=== PATIENT | female | born 1955 | race Caucasian/White ===

== ENCOUNTER → 2016-04-30 | Outpatient (CLI) | payer OTHER ==
--- NOTE | ~2016-04-30 | PFR/MVV ---
[facility] [place] [address] PULMONARY FUNCTION MVV/REPORT Name: MICHAEL DAVIDSON Room #: REG [facility].#: [id number] Admission: 04/30/16 Attend Phys: Mateusz Matthews DO Discharge: Date of : 51 Report #: [id number] THIS REPORT FOR: //name// COPIES FOR: AGE: 60 SEX/RACE: F/C >> SPIROMETRY: (BTPS) Height: 62 in cm Weight: 170 lbs kg Exam Date: 04/30/16 PRE-RX POST-RX PRED BEST %PRED BEST %PRED %CHG FVC LITERS . 2.73 . 3.38 . 124 . 3.50 . 128 . 4 FEV1 LITERS . 2.21 . 2.64 . 119 . 2.71 . 123 . 3 FEV1/FVC % . 83 . 78 . 94 . 78 . 93 . -1 OAD13-17% L/Sec . 2.39 . 2.60 . 109 . 2.57 . 108 . -1 PEF L/SEC . 5.43 . 6.48 . 119 . 4.78 . 88 . -26 FEF50/FIF50 UNITLESS . <1.00 . 1.98 . . 2.03 . . 2 MVV L/Min . 90 . 73 . 81 f 1/Min . . 175 . >> LUNG VOLUMES: (BTPS) PRE-RX POST-RX PRED AVG %PRED AVG %PRED %CHG VC Liters . 2.73 . 3.94 . 144 . . . TLC Liters . 4.48 . 5.65 . 126 . . . RV Liters . 1.70 . 1.71 . 101 . . . RV/TLC % . 38 . 30 . 79 . . . FRC [address] Liters . 2.32 . 3.02 . 130 . . . FRC N2 Liters . 2.32 . . . . . ERV Liters . . 1.31 . . . . IC Liters . . 2.60 . . . . >> DIFFUSION: DLCO ml/Min/mmHg . 20.8 . 16.7 . 80 . . . DL Ashlyn ml/Min/mmHg . 20.8 . 16.7 . 80 . . . DLCO/VA ml/Min/mmHg . 3.70 . 4.49 . 122 . . . VA Liters . . 3.71 . . . . [facility] [address] [place] [address] PULMONARY FUNCTION MVV/REPORT Name: MICHAEL DAVIDSON Room #: REG [facility]#: [id number] Admission: 04/30/16 Attend Phys: Mateusz Matthews DO Discharge: Date of : 51 Report #: [id number] COMMENTS: COMMENTS: >> RESISTANCE: PRE-RX PRED AVG %PRED Raw Total cmH20/L/Sec . . 5.50 . Raw Insp cmH20/L/Sec . . 4.95 . Raw Exp cmH20/L/Sec . . 10.78 . Raw cmH20/L/Sec . 1.68 . 2.22 . 132 Gaw L/Sec/cmH20 . 0.557 . 0.450 . 81 sRaw cmH20 Sec . 3.90 . 5.60 . 143 sGaw l/cmH20 Sec . 0.256 . 0.179 . 70 Vtq Liters . . 2.52 . # = OUTSIDE 95% CONFIDENCE INTERVAL CALIBRATION: PRED: 3.00 ACTUAL: EXP 3.01 INSP 3.02 [facility] N-1804-4 >> INTERPRETATION/IMPRESSION: CC: Mateusz Matthews MD Spirometric examination shows normal flows. There is no significant bronchodilator response. Lung volumes are increased suggestive of airtrapping. Diffusion capacity is normal, corrected for alveolar volume. Flow volume loop is normal. IMPRESSION: Normal pulmonary function study. <ELECTRONICALLY SIGNED> By: Balwinder Lilly MD 05/22/16 1650 Balwinder Lilly MD /nt
== END ==
LOC: CAT 10:37
DX: J32.9 Chronic sinusitis, unspecified (principal)

== ENCOUNTER → 2018-07-22 | Outpatient (CLI) | payer OTHER | LOC: CAT 10:54 | DX: Z13.6 Encounter for screening for cardiovascular disorders (principal); E78.00 Pure hypercholesterolemia, unspecified; I25.10 Atherosclerotic heart disease of native coronary artery without angina pectoris ==

== ENCOUNTER → 2019-06-30 | Outpatient (CLI) | payer OTHER | LOC: ULTRA 08:23 | DX: N28.1 Cyst of kidney, acquired (principal); K82.8 Other specified diseases of gallbladder ==

== ENCOUNTER 2019-07-08 12:33 | Observation (INO) | payer OTHER ==
[~2019-07-08] VITALS: Ht 152.4 cm; Wt 81.6 kg
--- NOTE | ~2019-07-08 | O ---
[facility] [place] [address] OPERATIVE REPORT Name: MICHAEL DAVIDSON Room #: 447-P [facility]..#: [id number] Admission: 07/08/19 Attend Phys: Yang Bernabe MD Discharge: Date of : 51 Report #: [id number] THIS REPORT FOR: cc: Mateusz Matthews,Yang Ontiveros MD ~ CC: Yang Matthews MD DATE OF SERVICE: 07/08/2019 PREOPERATIVE DIAGNOSES: Cholecystitis with sludge. POSTOPERATIVE DIAGNOSES: Cholecystitis and cholesterolosis. PROCEDURE PERFORMED: Laparoscopic cholecystectomy with cholangiogram. SURGEON: Yang Bernabe MD ANESTHESIA: General anesthesia. COMPLICATIONS: None. ESTIMATED BLOOD LOSS: 5 mL. PROCEDURE NOTE: With the patient under general anesthesia, IV antibiotic was administered. Abdomen prepped and draped in sterile fashion. Timeout was performed. A 0.25% Marcaine was used to anesthetize the skin. A small curved incision about 2 cm was made above the umbilicus. After incising through the skin and subcutaneous tissue, the midline fascia was identified. Midline fascia was opened under visualization, 0 Vicryl suture placed on the fascia for retraction. With the abdominal wall lifted anteriorly, Veress needle was then placed through the peritoneum. Abdominal cavity was insufflated with CO2. After creating pneumoperitoneum pressure of 15, 11 mm trocar was placed. Abdominal content appeared normal. Two 5 mm trocars were placed in the right upper quadrant and a 5 mm trocar right epigastrium. Gallbladder was lifted over the liver. Gallbladder was somewhat floppy. There are small adhesions to the proximal part of the gallbladder. These adhesions were taken down. The peritoneum was dissected free over the triangle of Calot. Cystic duct and artery were identified. The cystic artery was fairly close to the duct that went ahead and isolated the cystic artery, clipping x 2 proximally and 1 distally and then divided the cystic artery. Cystic duct was then isolated. The cystic duct was normal size. Clip was placed in junction of cystic duct to the gallbladder. When I looked medially, I can see part of the common duct. Opening was made in the cystic duct. Cholangiogram catheter was placed. [address] [address] OPERATIVE REPORT Name: MICHAEL DAVIDSON Room #: 447-P [facility] M.R.#: [id number] Admission: 07/08/19 Attend Phys: Yang Bernabe MD Discharge: Date of : 51 Report #: [id number] Fluoroscopic cholangiogram was obtained. The cholangiogram catheter was identified in the cystic duct, no harm to common duct. The common duct filled out well. The left hepatic branch did not fill out very well. The dye did flow readily into the duodenum. No stones identified. The cholangiogram catheter was then removed. The proximal cystic duct was then clipped x 2. The proximal part of the cystic duct was then clipped x 2. Cystic duct was divided. The rest of the gallbladder was divided from the liver bed without difficulty. The gallbladder was then removed through the 11 mm trocar. Gallbladder was opened off the field and it had several large size cholesterol gathering and one was floating in the liquid, consistent with cholesterolosis. The liver bed was checked. Hemostasis was obtained and confirmed. Trocars irrigation was aspirated out. Trocars removed. CO2 was evacuated. The fascia defect at the 11 mm trocar site above the umbilicus was closed with zghpft-yd-drcva 0 Vicryl x 2. Skin was irrigated. Skin was closed with 5-0 PDS. Steri-Strip, Band-Aids applied. The patient tolerated the procedure well and taken to recovery room. By: 2149 [id number] Yang Bernabe MD /nt
[2019-07-08 12:36] VITALS: BP 170/139
[2019-07-08] MEDS ORDERED: COZAAR 25 MG TA25 M1 PO (12:41)
[2019-07-08] MEDS ORDERED: SERTRALINE HCL100 MG PO (12:41)
[2019-07-08] MEDS ORDERED: HYDROCHLOROTHIA25 M2 PO (12:41)
[2019-07-08] MEDS ORDERED: OMEPRAZOLE40 MG PO (12:42)
[2019-07-08] MEDS ORDERED: CRESTOR5 MG PO (12:43)
[2019-07-08 13:38] LABS: ABSOLUTE NEUTROPHILS 3.3 thou/uL (1.4-8.2); BASOPHILS 0.6 % (0.0-2.0); EOSINOPHILS 0.6 % (0.0-3.0); HEMOGLOBIN 12.9 gm/dL (12.0-15.0); LYMPHOCYTES 29.9 % (24.0-44.0); MCH 29.4 pg (26.0-34.0); MCV 89.2 fL (80.0-100.0); MONOCYTES 7.3 % (1.0-8.0); PLATELET COUNT 292 thou/uL (150-400); POLYS 61.6 % (36.0-66.0); RBC 4.37 mil/uL (4.20-5.00); RDW 13.9 % (10.5-14.5); WBC 5.3 thou/uL (4.0-11.0)
[2019-07-08 13:51] LABS: CALCIUM 9.9 mg/dL (8.5-10.1); CREATININE 0.9 mg/dL (0.6-1.0); POTASSIUM 3.6 mmol/L (3.5-5.1)
[2019-07-08 13:58] LABS: ALBUMIN 3.9 g/dL (3.4-5.0); TOTAL BILIRUBIN 0.2 mg/dL (<0.1-1.0)
[2019-07-08 14:23] VITALS: BP 163/76
[2019-07-08 14:43] VITALS: BP 167/71
--- NOTE | 2019-07-08 16:24 | EKG ---
[facility] [place] [address] ELECTROCARDIOGRAM REPORT Name: MICHAEL DAVIDSON Room #: 150-1 ADM [facility] M.R.#: [id number] Admission: 07/08/19 Attend Phys: Yang Bernabe MD Discharge: Date of : 51 Report #: [id number] THIS REPORT FOR: cc: Mateusz Matthews,Mateusz Kendrick,Morris Ford MD ~ THIS REPORT FOR: //name// [facility] ED Test Date: 2019-07-08 Test Time: 13:30:23 Pat Name: MICHAEL DAVIDSON Department: Room: [facility] Gender: F Rack Loader: roger : 1955 Requested By: Herve Khanna Order Number: [id number] MD: Morris Ryan Measurements Intervals [place] Rate: 90 P: 50 OH: 133 QRS: -4 QRSD: 88 T: 40 QT: 366 QTc: 448 Interpretive Statements Sinus rhythm Probable left atrial enlargement RSR' in V1 or V2, probably normal variant No previous ECG available for comparison Electronically Signed On 07-08-2019 16:22:49 CDT by Morris Ryan [email or web address] <ELECTRONICALLY SIGNED> By: Morris Ryan MD 07/08/19 1622 1330 1330 Morris Ryan MD /EPI
--- NOTE | 2019-07-08 17:46 | H ---
[facility] [place] [address] HISTORY AND PHYSICAL Name: MICHAEL DAVIDSON Room #: 150-1 [facility]..#: [id number] Admission: 07/08/19 Attend Phys: Yang Bernabe MD Discharge: Date of : 51 Report #: [id number] THIS REPORT FOR: cc: Mateusz Matthews,Yang Ontiveros MD ~ CC: Yang Matthews MD DATE OF SERVICE: 07/08/2019 PREOPERATIVE DIAGNOSES: Cholecystitis with gallbladder sludge and abdominal pain. HISTORY OF PRESENT ILLNESS: The patient is a 63-year-old who went to see Dr. Matthews on 06/30/2019. She has been experiencing abdominal pain for about a year. She does have a lifelong history of abdominal issues or digestive issues. The patient, on 06/30/2019, complained of right upper quadrant pain. She had an ultrasound ordered on 06/30/2019 and it showed gallbladder sludge and ovoid dependent layering structure that is about a centimeter that felt to be either soft, non-shadowing stone or tumefactive sludge. No wall thickening. Last night, she had attack of pain and almost went to the Emergency Room. She is feeling progressively worse. The pain is in right upper quadrant, going to her back and shoulder area. She has a lot of bloating and her abdomen feels like a rock at times. Does have history of nausea and vomiting. She has hot flashes. No fever. Has history of diarrhea on and off. The patient on 06/30/2019 did have normal liver function tests and her white count is normal at 4900, hemoglobin of 12.5, platelet of 281. Liver function tests showed bilirubin of less than 0.25. Normal alkaline phosphatase, SGOT and SGPT. Creatinine is 0.8, BUN 1.5, potassium 4.2, sodium 142. The patient was worked in today because of the severe nature of her pain last night. The patient is recommended to proceed with gallbladder surgery. She did have some oatmeal apple raisin at about 9:45 this morning, since then, she has been n.p.o. PAST MEDICAL HISTORY: High blood pressure, anxiety. The patient denies any heart disease, denies diabetes, denies lung disease, denies liver disease, denies kidney disease, denies bleeding disorder, denies history of blood clot. History of urinary tract infection. PAST SURGICAL HISTORY: Tubal ligation, laparoscopic surgery for endometriosis, tonsillectomy, knee surgery, breast augmentation. She says takes longer to wake up from anesthesia. FAMILY HISTORY: Sister and her daughter have gallbladder trouble and had gallbladder surgery. The patient's family history also includes arthritis and [address] [address] HISTORY AND PHYSICAL Name: MICHAEL DAVIDSON Room #: 150-1 [facility] MJanett#: [id number] Admission: 07/08/19 Attend Phys: Yang Bernabe MD Discharge: Date of : 51 Report #: [id number]. REVIEW OF SYSTEMS: No history of jaundice. No headache, chest pain, shortness of breath. SOCIAL HISTORY: She is a caregiver for elderly individual. She does not smoke or drink. She has taken some dezb-dnu-hdrhhep histamine which has helped with her pain. PHYSICAL EXAMINATION: GENERAL: The patient appears to be appropriate age. Well-developed, well-nourished. HEENT: Pupils react to light. Sclerae are nonicteric. NECK: Soft and supple. Oropharynx is clear. LUNGS: Clear to auscultation. HEART: Regular rate and rhythm. No murmur or gallop. ABDOMEN: Soft, nondistended and xwmr-xa-btygykhh tenderness in right upper quadrant. No mass detected. A laparoscopic port site in the infraumbilical area seen. No guarding or rigidity, no mass, no ascites. EXTREMITIES: No cyanosis, clubbing or edema. IMPRESSION: The patient is a 63-year-old with abdominal pain located in the right upper quadrant, going to her back. She has had symptoms for about a year and the last couple of weeks, it has gotten progressively worse and last night, she had a bad episode. She almost went to the Emergency Room. No history of jaundice. Ultrasound is not abnormal with sludge and dense material which is thought to be tumefactive sludge or even a soft non-shadowing stone. Because of the significant symptomatic nature of her gallbladder disease, she is recommended to have gallbladder removed. Laparoscopic cholecystectomy was discussed. The risk involved with the procedure was discussed. The patient understands the procedure and wishes to proceed. Risk of bleeding, infection, common bile duct injury was discussed. The patient wished to proceed. <ELECTRONICALLY SIGNED> By: Yang Bernabe MD 07/08/19 1746 1314 1356 Yang Bernabe MD /nt
[2019-07-08 19:50] VITALS: BP 162/71
--- NOTE | 2019-07-09 03:40 | NUR ---
PT CARE ASSUMED AT 1915 WITH PT IN BED .PT IS HERE FOR OBSERRVATION AFTER LAP MARIE.PT HAS 4 LAP MARIE SITE DRESSED WITH BANDAID.PT DENIED PAIN AND NAUSEA AND VOMITING.PT UP TO BEDSIDE COMMODE .PT IS ON CLEAR LIQUID TO ADVANCE TO SOFT DIET TOLERATED.WILL CONTINUE TO MONITOR POC
[2019-07-09 04:20] VITALS: BP 157/71
[2019-07-09 09:30] VITALS: BP 155/73
[2019-07-09] MEDS ORDERED: NORCO 5-325 TA1 EAC1 PO (13:46)
[2019-07-09 14:03] VITALS: BP 157/71
--- NOTE | 2019-07-09 15:00 | NUR ---
PT ASSESSED AT START OF SHIFT. FELT NAUSEOUS THIS AM AND WAS BETTER AFTER TAKING SOME BROTH AND JELLO. AMBULATED THE HALLS SEVERAL TIMES AND STARTED PASSING GAS. STATES HER BACK PAIN THAT SHE HAS HAD FOR A LONG TIME IS NOW GONE SINCE HAVING HER GALLBLADDER OUT AND SHE IS SO HAPPY. DR. MOROCHO HERE AND DISCHARGED PT HOME.
--- NOTE | 2019-07-12 15:07 | PATH ---
[facility] [place] [address] PATHOLOGY RPT PROCEDURE Name: MICHAEL DAVIDSON Room #: 447-P [facility] Allie Shukla#: [id number] Admission: 07/08/19 Date of : 51 Discharge: 07/09/19 Report #: [id number] Path Case #: [id number] [facility] Accession Number: [id number] . 01 Material submitted: . gallbladder - GALLBLADDER . 01 Clinical history: . Cholecystitis with gallbladder sludge . 02 Diagnosis: Gallbladder, cholecystectomy: - Mild chronic cholecystitis. - Cholesterolosis along with numerous cholesterol polyps. (IUV/db; 07/12/2019) LBQ 07/12/2019 1232 Local . 02 Electronically signed: . Ginny Ingram MD, Pathologist NPI- [id number] . 01 Gross description: . The specimen is received in formalin labeled "Todd, Michael, gallbladder" and consists of a previously opened green inman smooth shiny gallbladder measuring 8.6 x 4.3 x 0.8 cm. The margin is inked black. No calculi are identified within the lumen or container. The mucosa is green and granular with scattered yellow polyps measuring between 0.1 cm and 0.8 cm. With an average wall thickness of 0.1 cm. No masses are identified. Arabic Teacher sections are submitted in A1. (SDY; 07/11/2019) SYU/SYU 07/11/2019 1245 Local . 02 Pathologist provided ICD-10: K81.1, K82.4 . 02 CPT . 527028 Specimen Comment: A courtesy copy of this report has been sent to [phone] Specimen Comment: Report sent to Performed at: [address], [place] [id number] MD Thong Bhatti MD Phone: [phone] Performed at: [address] [id number] MD Ginny Ingram MD Phone: [phone]
== END 2019-07-09 16:40 | disposition home or self-care (01) ==
LOC: ER 12:33 → EROBS 14:07 → TBA 14:41 → 4S 18:57
PROVIDERS: Emergency Medicine; ADMIT Surgery
DX: K81.9 Cholecystitis, unspecified (principal)
CPT/HCPCS: 50010; 50101; 50249; 50411; 50555; 50558; 51489; 53307; 53310; 55245; 55317; 56462; 56525; 56526; 62110; 62900; 70005

== ENCOUNTER → 2019-09-20 | Outpatient (CLI) | payer OTHER ==
[~2019-09-20] MED LIST: COZAAR 25 MG TA25 M1 PO; CRESTOR5 MG PO; HYDROCHLOROTHIA25 M2 PO; NORCO 5-325 TA1 EAC1 PO; OMEPRAZOLE40 MG PO; SERTRALINE HCL100 MG PO
== END ==
LOC: SJCVC 09:52
PROVIDERS: ATTEND Internal Medicine
DX: I10 Essential (primary) hypertension (principal); E78.5 Hyperlipidemia, unspecified; E11.9 Type 2 diabetes mellitus without complications; Z90.49 Acquired absence of other specified parts of digestive tract; Z79.899 Other long term (current) drug therapy

== ENCOUNTER → 2019-10-24 | Outpatient (CLI) | payer OTHER | LOC: SJCVCIMAG 07:42 | PROVIDERS: ATTEND Internal Medicine | DX: I10 Essential (primary) hypertension (principal); N28.1 Cyst of kidney, acquired ==

== ENCOUNTER → 2019-10-26 | Outpatient (CLI) | payer OTHER | LOC: SJCVCIMAG 07:56 | PROVIDERS: ATTEND Internal Medicine | DX: I35.1 Nonrheumatic aortic (valve) insufficiency (principal); R00.2 Palpitations; R07.9 Chest pain, unspecified; I10 Essential (primary) hypertension; R06.09 Other forms of dyspnea; E78.5 Hyperlipidemia, unspecified; E11.9 Type 2 diabetes mellitus without complications; Z79.899 Other long term (current) drug therapy; Z88.5 Allergy status to narcotic agent ==

== ENCOUNTER → 2019-11-02 | Outpatient (CLI) | payer OTHER ==
[~2019-11-02] VITALS: Ht 165.1 cm; Wt 84.8 kg
[2019-11-02 08:44] LABS: HEMOGLOBIN 13.2 gm/dL (12.0-15.0); MCH 29.4 pg (26.0-34.0); MCHC 33.1 g/dL (28.0-37.0); RBC 4.5 mil/uL (4.20-5.00); RDW 14.3 % (10.5-14.5); WBC 5.8 thou/uL (4.0-11.0)
[2019-11-02 08:48] VITALS: BP 148/74
[2019-11-02 08:55] LABS: CALCIUM 9.4 mg/dL (8.5-10.1); CREATININE 0.9 mg/dL (0.6-1.0); POTASSIUM 4.5 mmol/L (3.5-5.1)
--- NOTE | 2019-11-02 12:01 | NUR ---
PT AMBULATES WITHOUT DIFFICULTIES. NO VOICED COMPLAINTS. RIGHT GROIN REMAINS SOFT WITH NO BLEEDING AFTER WALK.
--- NOTE | 2019-11-15 09:15 | CATHLAB ---
[facility] [place] [address] INVASIVE PROCEDURE REPORT Name: MICHAEL DAVIDSON [id number] Admission: 11/02/19 Attend Phys: Kennedy Haji Discharge: Date of : 51 Report #: [id number] THIS REPORT FOR: cc: Mateusz Matthews Steven F. DO Lammoglia, Francisco J. MD ~ APPROVED REPORT Study performed: 11/02/2019 10:12:14 Patient Details Patient Status: Out-Patient Room #: The patient is a 64 year-old female Event Personnel Kennedy Haji Robotics Engineer, Melinda Cerda RTR Monitor, Cassandra Pelaez RT(R)() Monitor, Inez Caro RTR, DIDIER Mehta, Edith Alan paraffin plant operator Performed Left Heart Cath w/or w/o Coronaries [id number] [facility] Hemostasis with Manual pressure Art Access - R femoral artery* 54240 Initial Mod Sed Same Phys/QHP Gr 785722 10707 Mod Sed Same Phys/QHP Ea 433044, supervision of conscious sedation Indication Positive stress test Procedure Narrative The Right Groin^ was infiltrated with 1% Lidocaine subcutaneous anesthesia. A PINNACLE 4FR Sheath #[id number] sheath was inserted into the RFA 4F^. Coronary angiography was performed using coronary diagnostic catheters. The right coronary system was accessed and visualized with a JR4 catheter. The left coronary system was accessed and visualized with a JL4 catheter. The left ventricle was accessed and visualized with a PIGTAIL catheter. Left ventriculogram was performed in 30 degree projection. Hemostasis was obtained with manual pressure following sheath removal without any complications. The patient tolerated the procedure well and there were no complications associated with the procedure. There was no hematoma. Intraoperative Conscious Sedation Sedation start time: 10:14 Case end Time: [facility] [address] [place] [address] INVASIVE PROCEDURE REPORT Name: MICHAEL DAVIDSON Room #: REG [facility]#: [id number] Admission: 11/02/19 Attend Phys: Kennedy Farr Discharge: Date of : 51 Report #: [id number] 10:40 Versed 2 mg Fluoro Time: 1.00 minutes Dose: DAP 1908.30 cGycm2 271 mGy Contrast Type and Amount: Omnipaque 30 ml Coronary Angiography The patient's coronary anatomy is left dominant. Diagnostic Cath Left Main Normal origin moderate caliber bifurcates left anterior descending left circumflex is free of high-grade disease. It is short in length. LAD Moderate caliber type III vessel which courses in the anterior interventricular sulcus giving rise to several diagonal branches as it courses towards the apex looks the apex and terminates a small bifurcating vessel in the posterior aspect of left ventricle. It is free of significant high-grade lesion and has minimal irregularities noted. Diagonal 1 Small caliber as well as significant high-grade lesions present Circumflex Moderate to large caliber dominant vessel courses in the AV groove giving rise any significant first marginal branch. The second marginal branch is moderate caliber coursing on the lateral aspect ventricle free of significant high-grade lesions. The vessel itself and continues posteriorly giving rise to a moderate caliber posterior descending artery which is free of high-grade disease until the distal terminal portion which has presence of significant lesions in vessels that are string size and appearance. OM1 Small non-obstructed vessel without significant high-grade lesion L PDA Moderate to large caliber vessel coursing posterior interventricular sulcus without high-grade lesion to the terminal portion but there is lesions noted Right Coronary Small nondominant vessel without significant high-grade lesions noted Left Ventriculography Left Ventriculography was not performed. Hemodynamics The aortic pressure is 161/79 mmHg with a mean of 119 mmHg. The left ventricular pressure is 182/9 mmHg with a mean of mmHg. The left ventricular end diastolic pressure is 30 mmHg. [facility] [address] [place] [address] INVASIVE PROCEDURE REPORT Name: LETYMICHAEL M Room #: REG [facility]#: [id number] Admission: 11/02/19 Attend Phys: Kennedy Farr Discharge: Date of : 51 Report #: [id number] Conclusion 1. Minimal coronary disease consisting of the terminal portion of the left posterior descending artery 2. Normal hemodynamics Recommendations Cardiac Risk Reduction Program Agg[facility] Therapy <ELECTRONICALLY SIGNED> By: Kennedy Haji MD 11/15/19914 4 4 Kennedy Haji MD /INF
== END | disposition home or self-care (01) ==
LOC: CATH 07:56
PROVIDERS: ATTEND Internal Medicine
DX: R94.39 Abnormal result of other cardiovascular function study (principal); I25.10 Atherosclerotic heart disease of native coronary artery without angina pectoris; R07.9 Chest pain, unspecified; I10 Essential (primary) hypertension; E78.5 Hyperlipidemia, unspecified; E78.00 Pure hypercholesterolemia, unspecified; K21.9 Gastro-esophageal reflux disease without esophagitis; E66.09 Other obesity due to excess calories; Z98.890 Other specified postprocedural states; Z79.899 Other long term (current) drug therapy; Z98.51 Tubal ligation status; Z82.49 Family history of ischemic heart disease and other diseases of the circulatory system; Z88.8 Allergy status to other drugs, medicaments and biological substances

== ENCOUNTER → 2020-01-23 | Outpatient (CLI) | payer OTHER | LOC: SJCVC 10:27 | PROVIDERS: ATTEND Internal Medicine | DX: I10 Essential (primary) hypertension (principal); R07.9 Chest pain, unspecified; I47.1 Supraventricular tachycardia; Z79.899 Other long term (current) drug therapy ==

== ENCOUNTER → 2020-02-08 | Outpatient (CLI) | payer OTHER | LOC: RAD 12:41 | PROVIDERS: ATTEND Surgery | DX: Z12.31 Encounter for screening mammogram for malignant neoplasm of breast (principal) ==

== ENCOUNTER → 2020-12-05 | Outpatient (CLI) | payer OTHER ==
[~2020-12-05] VITALS: Ht 152.4 cm; Wt 79.8 kg
[~2020-12-05] MED LIST changes: +ALIVE WOMEN'S1 EAC3 PO; +ALLERGY RELIEF5 MG PO; +HYDROCHLOROTH12.5 M2 PO; +NABUMETONE 500500 M2 PO; +NIFEDIPINE ER30 MG PO
[2020-12-05 13:00] VITALS: BP 164/77
--- NOTE | 2020-12-05 13:05 | NUR ---
Pain Clinic Assessment: 1. History of Osteoarthritis: * NECK History of Rheumatoid Arthritis: NONE 2. Height: 5 ft. 0 in. 152.4 cm. Weight: 176.0 lb. oz. 79.833 kg. Patient's BMI: 34.4 3. Vital Signs: BP: 164/77 Pulse: 88 Resp: 14 Temp: 02 Sat: 96 ECG Mon: 4. Pain Intensity: 8 5. Fall Risk: Dizziness: N Needs help standing or walking: N Fallen in the last 3 months: N Fall risk comments: 6. Patient on Blood Thinner: None 7. History of Hypertension: Y 8. Opioid Therapy greater than 6 weeks: N Opiate Contract Signed: 9. Risk Assessment Tool Provided: LOW-1 10. Functional Assessment Tool: 47/ 11. Recreational Drug Use: Never Drug Type: Tobacco Use: Never Smoker Tobacco Type: Amount or Packs/day: How Many Years: Alcohol Use: No Frequency: Quant:
== END ==
LOC: PAIN 08:32
PROVIDERS: ATTEND Anesthesiology Pain Medicine
DX: M06.9 Rheumatoid arthritis, unspecified (principal); M54.2 Cervicalgia; I10 Essential (primary) hypertension

== ENCOUNTER → 2020-12-12 | Outpatient (CLI) | payer OTHER ==
[~2020-12-12] VITALS: Ht 152.4 cm; Wt 76.7 kg
[2020-12-12 11:24] VITALS: BP 143/74
--- NOTE | 2020-12-12 11:32 | NUR ---
Pain Clinic Assessment: 1. History of Osteoarthritis: * NECK History of Rheumatoid Arthritis: NONE 2. Height: 5 ft. 0 in. 152.4 cm. Weight: 169.2 lb. oz. 76.749 kg. Patient's BMI: 33.0 3. Vital Signs: BP: 143/74 Pulse: 92 Resp: 18 Temp: 02 Sat: 96 ECG Mon: 4. Pain Intensity: 7 5. Fall Risk: Dizziness: N Needs help standing or walking: N Fallen in the last 3 months: N Fall risk comments: 6. Patient on Blood Thinner: None 7. History of Hypertension: Y 8. Opioid Therapy greater than 6 weeks: N Opiate Contract Signed: 9. Risk Assessment Tool Provided: LOW-1 10. Functional Assessment Tool: 47/ 11. Recreational Drug Use: Never Drug Type: Tobacco Use: Never Smoker Tobacco Type: Amount or Packs/day: How Many Years: Alcohol Use: No Frequency: Quant:
== END | disposition home or self-care (01) ==
LOC: PAIN 07:08
PROVIDERS: ATTEND Anesthesiology Pain Medicine
DX: M54.16 Radiculopathy, lumbar region (principal); G89.29 Other chronic pain; I10 Essential (primary) hypertension; M19.90 Unspecified osteoarthritis, unspecified site; F32.9 Major depressive disorder, single episode, unspecified; Z98.890 Other specified postprocedural states; Z79.899 Other long term (current) drug therapy; Z90.49 Acquired absence of other specified parts of digestive tract; Z88.8 Allergy status to other drugs, medicaments and biological substances

== ENCOUNTER → 2021-01-09 | Outpatient (CLI) | payer OTHER ==
[~2021-01-09] VITALS: Ht 152.4 cm; Wt 76.4 kg
[2021-01-09 11:02] VITALS: BP 142/71
--- NOTE | 2021-01-09 11:36 | NUR ---
Pain Clinic Assessment: 1. History of Osteoarthritis: * NECK History of Rheumatoid Arthritis: NONE 2. Height: 5 ft. 0 in. 152.4 cm. Weight: 168.4 lb. oz. 76.386 kg. Patient's BMI: 32.9 3. Vital Signs: BP: 142/71 Pulse: 72 Resp: 16 Temp: 02 Sat: 98 ECG Mon: 4. Pain Intensity: 8-9 5. Fall Risk: Dizziness: N Needs help standing or walking: N Fallen in the last 3 months: N Fall risk comments: 6. Patient on Blood Thinner: None 7. History of Hypertension: Y 8. Opioid Therapy greater than 6 weeks: N Opiate Contract Signed: 9. Risk Assessment Tool Provided: LOW-1 10. Functional Assessment Tool: 11. Recreational Drug Use: Never Drug Type: Tobacco Use: Never Smoker Tobacco Type: Amount or Packs/day: How Many Years: Alcohol Use: No Frequency: Quant:
== END ==
LOC: PAIN 07:09
PROVIDERS: ATTEND Anesthesiology Pain Medicine
DX: G89.29 Other chronic pain (principal); M79.7 Fibromyalgia; M54.5 Low back pain; I10 Essential (primary) hypertension; F34.89 Other specified persistent mood disorders; M25.59 Pain in other specified joint; Z88.8 Allergy status to other drugs, medicaments and biological substances; Z79.899 Other long term (current) drug therapy

== ENCOUNTER → 2021-01-16 | Outpatient (CLI) | payer OTHER ==
[~2021-01-16] VITALS: Ht 152.4 cm; Wt 76.2 kg
[2021-01-16 11:06] VITALS: BP 144/83
--- NOTE | 2021-01-16 11:24 | NUR ---
Pain Clinic Assessment: 1. History of Osteoarthritis: * NECK History of Rheumatoid Arthritis: NONE 2. Height: 5 ft. 0 in. 152.4 cm. Weight: 168.0 lb. oz. 76.204 kg. Patient's BMI: 32.8 3. Vital Signs: BP: 144/83 Pulse: 72 Resp: 16 Temp: 02 Sat: 98 ECG Mon: 4. Pain Intensity: 8 5. Fall Risk: Dizziness: N Needs help standing or walking: N Fallen in the last 3 months: N Fall risk comments: 6. Patient on Blood Thinner: None 7. History of Hypertension: Y 8. Opioid Therapy greater than 6 weeks: N Opiate Contract Signed: 9. Risk Assessment Tool Provided: LOW-1 10. Functional Assessment Tool: / 11. Recreational Drug Use: Never Drug Type: Tobacco Use: Never Smoker Tobacco Type: Amount or Packs/day: How Many Years: Alcohol Use: No Frequency: Quant:
== END ==
LOC: PAIN 07:09
PROVIDERS: ATTEND Anesthesiology Pain Medicine
DX: M54.5 Low back pain (principal); I10 Essential (primary) hypertension; F32.9 Major depressive disorder, single episode, unspecified; Z88.5 Allergy status to narcotic agent; Z88.8 Allergy status to other drugs, medicaments and biological substances; Z79.899 Other long term (current) drug therapy; Z98.890 Other specified postprocedural states

== ENCOUNTER → 2021-03-13 | Outpatient (CLI) | payer OTHER, MEDICAID ==
[~2021-03-13] VITALS: Ht 152.4 cm; Wt 74.9 kg
[2021-03-13 08:33] VITALS: BP 147/70
--- NOTE | 2021-03-13 08:39 | NUR ---
Pain Clinic Assessment: 1. History of Osteoarthritis: * NECK History of Rheumatoid Arthritis: NONE 2. Height: 5 ft. 0 in. 152.4 cm. Weight: 165.2 lb. oz. 74.934 kg. Patient's BMI: 32.3 3. Vital Signs: BP: 147/70 Pulse: 81 Resp: 16 Temp: 02 Sat: 96 ECG Mon: 4. Pain Intensity: BACK 2; NECK 9 5. Fall Risk: Dizziness: N Needs help standing or walking: N Fallen in the last 3 months: N Fall risk comments: 6. Patient on Blood Thinner: None 7. History of Hypertension: Y 8. Opioid Therapy greater than 6 weeks: N Opiate Contract Signed: 9. Risk Assessment Tool Provided: LOW-1 10. Functional Assessment Tool: 11. Recreational Drug Use: Never Drug Type: Tobacco Use: Never Smoker Tobacco Type: Amount or Packs/day: How Many Years: Alcohol Use: No Frequency: Quant:
== END | disposition home or self-care (01) ==
LOC: PAIN 08:06
PROVIDERS: ATTEND Anesthesiology Pain Medicine
DX: M54.9 Dorsalgia, unspecified (principal); G89.29 Other chronic pain; M19.90 Unspecified osteoarthritis, unspecified site; I10 Essential (primary) hypertension; F32.9 Major depressive disorder, single episode, unspecified; Z98.890 Other specified postprocedural states; Z79.899 Other long term (current) drug therapy; Z88.8 Allergy status to other drugs, medicaments and biological substances

== ENCOUNTER → 2021-04-24 | Outpatient (CLI) | payer OTHER, MEDICAID ==
[~2021-04-24] VITALS: Ht 152.4 cm; Wt 75.8 kg
[~2021-04-24] MED LIST changes: +TRAMADOL 50 MG50 MG PO
[2021-04-24 08:24] VITALS: BP 158/80
--- NOTE | 2021-04-24 08:39 | NUR ---
Pain Clinic Assessment: 1. History of Osteoarthritis: NECK History of Rheumatoid Arthritis: NONE 2. Height: 5 ft. 0 in. 152.4 cm. Weight: 167.2 lb. oz. 75.841 kg. Patient's BMI: 32.7 3. Vital Signs: BP: 158/80 Pulse: 86 Resp: 14 Temp: 02 Sat: 97 ECG Mon: 4. Pain Intensity: 7 5. Fall Risk: Dizziness: N Needs help standing or walking: N Fallen in the last 3 months: N Fall risk comments: 6. Patient on Blood Thinner: None 7. History of Hypertension: Y 8. Opioid Therapy greater than 6 weeks: N Opiate Contract Signed: 9. Risk Assessment Tool Provided: LOW-1 10. Functional Assessment Tool: 47/ 11. Recreational Drug Use: Never Drug Type: Tobacco Use: Never Smoker Tobacco Type: Amount or Packs/day: How Many Years: Alcohol Use: No Frequency: Quant:
== END ==
LOC: PAIN 07:33
PROVIDERS: ATTEND Anesthesiology Pain Medicine
DX: M47.816 Spondylosis without myelopathy or radiculopathy, lumbar region (principal); M47.817 Spondylosis without myelopathy or radiculopathy, lumbosacral region; I10 Essential (primary) hypertension; M79.18 Myalgia, other site; F34.89 Other specified persistent mood disorders; Z88.8 Allergy status to other drugs, medicaments and biological substances; Z79.899 Other long term (current) drug therapy